=== PATIENT | female | born 2000 | race Caucasian/White ===

== ENCOUNTER 2024-07-10 13:41 | Emergency (ER) | payer OTHER ==
[~2024-07-10] VITALS: Ht 172.7 cm; Wt 71.7 kg
[2024-07-10 14:29] LABS: BASOPHILS ABSOLUTE AUTO 0.03 K/mm3 (0.00-0.23); BASOPHILS PERCENT AUTO 0 % (0-2); EOSINOPHILS ABSOLUTE AUTO 0.15 K/mm3 (0.00-0.68); EOSINOPHILS PERCENT AUTO 2 % (0-6); Hematocrit 39.5 % (33.0-51.0); Hemoglobin 13.4 g/dL (11.5-16.0); IMMATURE GRAN ABSOLUTE AUTO 0.03 K/mm3 (0.00-0.10); IMMATURE GRAN PERCENT AUTO 0 % (0-1); LYMPHOCYTES PERCENT AUTO 22 % (21-46); MONOCYTES ABSOLUTE AUTO 0.76 K/mm3 (0.16-1.47); MONOCYTES PERCENT AUTO 9 % (4-13); Mean Corpuscular HGB 28.8 pg (26.0-34.0); Mean Corpuscular HGB Conc 33.9 g/dL (31.5-36.5); Mean Corpuscular Volume 85 fL (80-100); Mean Platelet Volume 10.5 fL (9.1-12.4); NEUTROPHILS ABSOLUTE AUTO 5.36 K/mm3 (1.96-9.15); NEUTROPHILS PERCENT AUTO 66 % (41-73); Platelet Count 170 K/mm3 (150-400); RDW Coefficient Variation 13.1 % (11.7-14.2); RDW Standard Deviation 40.6 fL (35.1-46.3); Red Blood Cell Count 4.65 M/mm3 (3.80-5.20); White Blood Cell Count 8.13 K/mm3 (4.00-11.30)
[2024-07-10 14:53] LABS: Albumin, Blood 3.9 g/dL (3.4-5.0); Albumin/Globulin Ratio 1.1 (0.8-1.8); Bilirubin, Total 0.2 mg/dL (0.1-1.0); Bun/Creatinine Ratio 23.6 (12.0-20.0); Calcium, Blood 9.1 mg/dL (8.5-10.1); Creatinine, Blood 0.59 mg/dL (0.40-1.00); Globulin, Blood 3.4 g/dL (2.2-4.0); Potassium, Blood 3.9 mmol/L (3.5-5.5); Total Protein, Blood 7.3 g/dL (6.4-8.2)
[2024-07-10 15:00] LABS: Source, Urine Clean Catch
[2024-07-10 15:06] LABS: Appearance, Urine Cloudy (Clear); Bilirubin, Urine Neg (Neg); Blood, Urine 5+ (Neg); Color, Urine Yellow (P-Yellow); Glucose Qualitative, Urine Neg (Neg); Ketones, Urine Neg (Neg); Leukocyte Esterase, Urine Neg (Neg); Nitrite, Urine Neg (Neg); Protein, Urine 2+ (Neg); Urobilinogen, Urine NORM (Normal)
[2024-07-10 15:16] LABS: Bacteria Few /hpf; Red Blood Cells, Urine TNTC /hpf (0-2); Squamous Epithelial Cells Few /hpf (Few); White Blood Cells, Urine 0-2 /hpf (0-5)
[2024-07-10] MEDS ORDERED: ACET500 PO (15:51)
== END 2024-07-10 16:09 | disposition home or self-care (01) ==
LOC: ER 13:41
PROVIDERS: Emergency Medicine
DX: O20.9 Hemorrhage in early pregnancy, unspecified (principal); Z3A.01 Less than 8 weeks gestation of pregnancy
CPT/HCPCS: 76801; 76817; 80053; 81001; 83690; 83735; 84702; 85025; 86850; 86900; 86901; 99284-25

== ENCOUNTER → 2024-09-24 | Outpatient (CLI) | payer OTHER ==
[~2024-09-24] MED LIST: ACET500 PO
[2024-09-24 13:02] LABS: Source, Urine Clean Catch
[2024-09-24 14:30] LABS: Amorphous Heavy (0-Heavy); Bacteria Many /hpf; Squamous Epithelial Cells Many /hpf (Few)
[2024-09-24 14:32] LABS: Mucus Light (0-Heavy); Red Blood Cells, Urine 0-2 /hpf (0-2); Transitional Epithelial Cells Rare /hpf (0-Rare)
[2024-09-24 14:55] LABS: U Amphetamine Screen Not Detected; U Barbituate Screen Not Detected; U Benzodiazapine Screen Not Detected; U Buprenorphine Screen Not Detected; U Cannabinoids Screen Not Detected; U Cocaine Screen Not Detected; U Methadone Screen Not Detected; U Methamphetamine Screen Not Detected; U Opiates Screen Not Detected; U Oxycodone Screen Not Detected; U Phencyclidine Screen Not Detected
[2024-09-24 16:05] LABS: Bacterial Vaginosis PCR Negative (NEGATIVE); Candida Group, PCR DETECTED (NOT DETECT); Candida glabrata-krusei, PCR NOT DETECTED (NOT DETECT)
== END ==
LOC: LAB 10:15 → LAB SHORT 10:15
PROVIDERS: Advanced Practice Midwife
DX: Z34.81 Encounter for supervision of other normal pregnancy, first trimester (principal); N89.8 Other specified noninflammatory disorders of vagina
CPT/HCPCS: 81015; 81515; 87086; 87147

== ENCOUNTER → 2024-12-07 | Outpatient (CLI) | payer OTHER ==
[2024-12-07 16:15] LABS: Source, Urine Clean Catch
[2024-12-07 18:59] LABS: Bilirubin, Urine Neg (Neg); Color, Urine Yellow (P-Yellow); Glucose Qualitative, Urine Neg (Neg); Ketones, Urine Neg (Neg); Leukocyte Esterase, Urine Neg (Neg); Protein, Urine Neg (Neg); Specific Gravity, Urine 1.015 (1.003-1.022); Urobilinogen, Urine NORM (Normal)
== END | disposition home or self-care (01) ==
LOC: LAB 16:14 → LAB SHORT 16:14
PROVIDERS: Advanced Practice Midwife
DX: R82.71 Bacteriuria (principal)
CPT/HCPCS: 81003

== ENCOUNTER 2025-04-13 16:14 | Inpatient (IN) | payer OTHER ==
[~2025-04-13] VITALS: Ht 172.7 cm; Wt 77.2 kg
[2025-04-13 16:22] VITALS: BP 106/62
[2025-04-13] MEDS ORDERED: Penicillin G Potassium 5,000,000 UNITS in NS 250 ML IV ONE (17:10)
[2025-04-13] MEDS ORDERED: Methylergonovine Maleate 0.2MG / ML 1ML Amp IM PRN (17:10)
[2025-04-13] MEDS ORDERED: Ondansetron HCl 2 MG / ML 2ML Vial IV PRN (17:10)
[2025-04-13] MEDS ORDERED: Tranexamic Acid 100 ML IV SCH (17:10)
[2025-04-13] MEDS ORDERED: Carboprost Tromethamine 250 MCG/ML 1ML Amp IM PRN (17:10)
[2025-04-13] MEDS ORDERED: OXYTOCIN/RINGER'S LACTATE 500 ML IV PRN (17:10)
[2025-04-13] MEDS ORDERED: Oxytocin 10 Unit / ML Vial IM PRN (17:10)
[2025-04-13 17:20] LABS: BASOPHILS ABSOLUTE AUTO 0.02 K/mm3 (0.00-0.23); BASOPHILS PERCENT AUTO 0 % (0-2); EOSINOPHILS ABSOLUTE AUTO 0.04 K/mm3 (0.00-0.68); EOSINOPHILS PERCENT AUTO 1 % (0-6); Hematocrit 36.5 % (33.0-51.0); Hemoglobin 12.6 g/dL (11.5-16.0); IMMATURE GRAN ABSOLUTE AUTO 0.04 K/mm3 (0.00-0.10); IMMATURE GRAN PERCENT AUTO 1 % (0-1); LYMPHOCYTES ABSOLUTE AUTO 1.45 K/mm3 (0.84-5.20); LYMPHOCYTES PERCENT AUTO 17 % (21-46); MONOCYTES ABSOLUTE AUTO 0.62 K/mm3 (0.16-1.47); MONOCYTES PERCENT AUTO 7 % (4-13); Mean Corpuscular HGB Conc 34.5 g/dL (31.5-36.5); Mean Corpuscular Volume 87 fL (80-100); NEUTROPHILS ABSOLUTE AUTO 6.39 K/mm3 (1.96-9.15); NEUTROPHILS PERCENT AUTO 75 % (41-73); NRBC ABSOLUTE 0.00 K/mm3 (0.00-0.02); NRBC Auto 0.0 /100 WBC (0.0-0.2); Platelet Count 155 K/mm3 (150-400); RDW Coefficient Variation 13.8 % (11.7-14.2); RDW Standard Deviation 43.5 fL (35.1-46.3)
[2025-04-13] MEDS ORDERED: OXYTOCIN/RINGER'S LACTATE 500 ML IV SCH ×2 (17:30→19:15)
[2025-04-13 18:34] VITALS: BP 114/56
[2025-04-13 18:57] VITALS: BP 117/68
[2025-04-13 19:19] VITALS: BP 125/70
[2025-04-13] MEDS ORDERED: Penicillin G Potassium 2,500,000 UNITS in Dextrose 5% 100 ML IV SCH (22:00)
[2025-04-13 23:06] VITALS: BP 110/63
[2025-04-14] VITALS (10 sets, daily range): BP systolic 102–126; BP diastolic 57–76
[2025-04-15] VITALS (29 sets, daily range): BP systolic 108–136; BP diastolic 59–95
[2025-04-15] MEDS ORDERED: Benzocaine Topical Anesthetic Spray 60GM TOP PRN (02:40)
[2025-04-15] MEDS ORDERED: FLU VACC TS2025-26(6MOS UP)/PF 45 MCG/0.5 ML SYRINGE IM SCH (02:45)
[2025-04-15] MEDS ORDERED: Rho(D) Immune Globulin 300 MCG / SYR IM ONE (02:45)
[2025-04-15] MEDS ORDERED: Witch Hazel/Glycerin PADS TOP PRN (02:45)
[2025-04-15] MEDS ORDERED: OXYTOCIN/RINGER'S LACTATE 500 ML IV PRN (02:45)
[2025-04-15] MEDS ORDERED: Ketorolac Tromethamine 30mg Vial IV PRN (02:50)
[2025-04-15] MEDS ORDERED: Methylergonovine Maleate 0.2MG / ML 1ML Amp IM PRN (02:50)
[2025-04-15] MEDS ORDERED: Tranexamic Acid 100 ML IV PRN (03:05)
--- NOTE | 2025-04-15 06:33 | NUR ---
0600- RN CALLED LAB IN REGARDS TO [facility] THEY WILL BE DOWN TO DRAW PT LABS THAT WERE DUE AT 0500. LAB STATES THEY ARE BEHIND ANDS WILL TAKE A WHILE LONGER TO GET DOWN TO [facility]BP. RN GOING TO PT ROOM NOW TO DRAW HER LABS.
[2025-04-15 06:38] LABS: BASOPHILS ABSOLUTE AUTO 0.02 K/mm3 (0.00-0.23); BASOPHILS PERCENT AUTO 0 % (0-2); EOSINOPHILS ABSOLUTE AUTO 0.03 K/mm3 (0.00-0.68); EOSINOPHILS PERCENT AUTO 0 % (0-6); Hematocrit 30.8 % (33.0-51.0); Hemoglobin 10.8 g/dL (11.5-16.0); IMMATURE GRAN ABSOLUTE AUTO 0.06 K/mm3 (0.00-0.10); IMMATURE GRAN PERCENT AUTO 0 % (0-1); LYMPHOCYTES ABSOLUTE AUTO 1.22 K/mm3 (0.84-5.20); LYMPHOCYTES PERCENT AUTO 8 % (21-46); MONOCYTES ABSOLUTE AUTO 1.02 K/mm3 (0.16-1.47); MONOCYTES PERCENT AUTO 7 % (4-13); Mean Corpuscular HGB Conc 35.1 g/dL (31.5-36.5); Mean Corpuscular Volume 86 fL (80-100); NEUTROPHILS ABSOLUTE AUTO 12.39 K/mm3 (1.96-9.15); NEUTROPHILS PERCENT AUTO 84 % (41-73); NRBC ABSOLUTE 0.00 K/mm3 (0.00-0.02); NRBC Auto 0.0 /100 WBC (0.0-0.2); Platelet Count 138 K/mm3 (150-400); RDW Coefficient Variation 13.6 % (11.7-14.2); RDW Standard Deviation 43.1 fL (35.1-46.3)
[2025-04-15 07:24] LABS: Fibrinogen 394.0 mg/dL (170-430)
[2025-04-15] MEDS ORDERED: Prenatal Vit/FE Fumarate/FA 1 Tab PO SCH (09:00)
[2025-04-15] MEDS ORDERED: Sod Ferric Gluc Complx/Sucrose 125 MG in NS 100 ML IV SCH (13:00)
[2025-04-15] MEDS ORDERED: Methylergonovine Maleate 0.2MG / ML 1ML Amp IV ONE (17:10)
[2025-04-15] MEDS ORDERED: Polyethylene Glycol 3350 17 gm PO PRN (18:45)
--- NOTE | 2025-04-15 19:57 | NUR ---
Assumed care at change of shift, patient nursing at this time. Reports the recent toradol was helpful withpain now 05/01 only when . Patient understands the cramping at this stage is normal. Reviewed plan for the shift including assessments, vitals and 24hour testing. Parents understand and agree with plan for the shift.
[2025-04-16 01:23] VITALS: BP 122/69
[2025-04-16 05:13] VITALS: BP 107/58
--- NOTE | 2025-04-16 07:37 | NUR ---
BREAKFAST TRAY TAKEN IN TO PT BY RN. DR THEODORE IN ROOM ASSESSING PT. PT REPORTS SHE IS COMFORTABLE, VOIDING OK, PASSING GAS. PT REQUESTING RX FOR IBUPROPHEN BE CALLED IN TO [facility]. PT DECLINES [facility]. PT PREFERS [facility]. OFFICE WILL BE REACHING OUT TO PT TO SCHEDULE 2 AND 6 WEEK FOLLOW UP APPOINTMENTS.
[2025-04-16 08:39] VITALS: BP 120/63
[2025-04-16] MEDS ORDERED: IBUP800 PO (10:01)
--- NOTE | 2025-04-16 10:07 | NUR ---
EDUCATION: REVIEWED DISCHARGE INSTRUCTIONS WITH PT ANS SIGNIFICANT OTHER. PT VERBALIZED UNDERSTANDING.
--- NOTE | 2025-04-16 11:05 | NUR ---
DISCHARGE: PT DISCHARGED AT 1056. PT TOOK ALL BELONGINGS WITH HER TO PRIVATE CAR.
== END 2025-04-16 10:57 | disposition home or self-care (01) | DRG 807 ==
LOC: BC 16:14 → OBS 16:14 → BC 16:45
PROVIDERS: Family Medicine; ADMIT Advanced Practice Midwife
PROC: 10E0XZZ Delivery of Products of Conception, External Approach (ICD-10-PCS; principal; 2025-04-15)
PROC: 0KQM0ZZ Repair Perineum Muscle, Open Approach (ICD-10-PCS; 2025-04-15)
PROC: 10H07YZ Insertion of Other Device into Products of Conception, Via Natural or Artificial Opening (ICD-10-PCS; 2025-04-15)
PROC: 3E03329 Introduction of Other Anti-infective into Peripheral Vein, Percutaneous Approach (ICD-10-PCS; 2025-04-15)
PROC: 0U7C7DJ Dilation of Cervix with Intraluminal Device, Temporary, Via Natural or Artificial Opening (ICD-10-PCS; 2025-04-15)
DX: O99.824 Streptococcus B carrier state complicating childbirth (principal); Z37.0 Single live birth; O76 Abnormality in fetal heart rate and rhythm complicating labor and delivery; O72.1 Other immediate postpartum hemorrhage; O70.1 Second degree perineal laceration during delivery; Z3A.39 39 weeks gestation of pregnancy
CPT/HCPCS: 85025; 85384; 85730; 86850; 86900; 86901; 86923; 99213; A9270; J1885; J2210; J2540; J2590; J2916; J7050; J7120